=== PATIENT | female | born 1990 | race African-American/Black ===

== ENCOUNTER 2016-02-26 06:57 | Inpatient (IN) | payer OTHER ==
[2016-02-26] VITALS (22 sets, daily range): BP systolic 130–172; BP diastolic 72–109
[~2016-02-26] VITALS: Ht 165.1 cm; Wt 181.6 kg
[~2016-02-26 06:57] MED LIST: ADVIL,NUPRIN,M200 MG PO; DIFLUCAN150 MG PO; EXCEDRIN MIGRA1 EAC3 PO; FIORICET 50-301 EACH PO; MOTRIN PO; NAPROSYN500 MG PO; PREDNISONE20 MG PO; PRENATAL TABLE1 EAC3 PO; TRAMADOL HCL50 MG PO; ZITHROMAX Z-PA250 MG PO; ZOFRAN4 MG PO
[2016-02-26 09:12] LABS: EOSINOPHIL (%) 0.8 % (0-5); EOSINOPHIL COUNT 0.1 K/uL (0-0.3); HEMATOCRIT 33.1 % (36.0-46.0); IMMATURE GRANULOCYTE (%) 0.1 % (0.0-0.7); LYMPHOCYTE COUNT 2.1 K/uL (1.0-2.8); MCH 26.3 PG (29.0-34.0); MCHC 31.7 G/DL (30.0-36.0); MEAN PLAT.VOLUME 12.4 uM^3 (9.5-12.4); MONOCYTE (%) 4.8 % (3-12); MONOCYTE COUNT 0.5 K/uL (0-0.8); NEUTROPHIL COUNT 7.1 K/uL (1.8-6.4); PLATELET COUNT 174 K/uL (156-360); RBC DIS.WIDTH-CV 14.7 % (11.8-14.6); RBC DIS.WIDTH-SD 44.3 % (39-53); RED BLOOD COUNT 3.99 M/uL (3.80-5.20); WHITE BLOOD COUNT 9.7 K/uL (4.1-10.2)
[2016-02-26 09:14] LABS: UR CREATININE CONCENTRATION 178.4 MG/DL
[2016-02-26 09:15] LABS: AMPHETAMINES QUANT VALUE 0 NG/ML; BARBITUATES QUANT VALUE 0 NG/ML; BENZODIAZEPINES QUANT VALUE 0 NG/ML; BENZODIAZEPINES, URINE SCREEN Negative (200 ng/mL); MARIJUANA QUANT VALUE 0 NG/ML; OPIATES QUANTITATIVE VALUE 0 NG/ML; PHENCYCLIDINE QUANT VALUE 0 NG/ML
[2016-02-26 10:03] LABS: ALKALINE PHOSPHATASE 141 IU/L (3-129); ANION GAP 9 MEQ/L (2-14); CHLORIDE 106 MEQ/L (99-109); GFR ESTIMATE (CALCULATED) > 59 mL/min/; GLUCOSE 87 mg/dL (70-99); POTASSIUM 4.2 MEQ/L (3.7-5.4); SAMPLE HEMOLYSIS CHECK 0; SAMPLE ICTERIC CHECK 0; SAMPLE LIPEMIA CHECK 0; SODIUM 137 MEQ/L (136-147); TOTAL BILIRUBIN 0.2 MG/DL (0.0-1.0); UREA NITROGEN (BUN) 9 mg/dL (9-23)
[2016-02-26] MEDS ORDERED: IBUPROFEN800 MG PO (21:18)
[2016-02-27 00:15] VITALS: BP 137/72
[2016-02-27 04:04] VITALS: BP 121/58
[2016-02-27 06:23] LABS: EOSINOPHIL (%) 0.1 % (0-5); HEMATOCRIT 29.6 % (36.0-46.0); IMMATURE GRANULOCYTE (%) 0.2 % (0.0-0.7); MCH 26.2 PG (29.0-34.0); MCHC 31.8 G/DL (30.0-36.0); MCV 82.5 FL (83-99); MEAN PLAT.VOLUME 12.8 uM^3 (9.5-12.4); MONOCYTE (%) 4.7 % (3-12); MONOCYTE COUNT 0.6 K/uL (0-0.8); NEUTROPHIL (%) 80.1 % (45-76); NEUTROPHIL COUNT 10.8 K/uL (1.8-6.4); PLATELET COUNT 166 K/uL (156-360); RBC DIS.WIDTH-CV 14.4 % (11.8-14.6); RBC DIS.WIDTH-SD 43.3 % (39-53); RED BLOOD COUNT 3.59 M/uL (3.80-5.20)
[2016-02-27 06:25] LABS: WHITE BLOOD COUNT 13.4 K/uL (4.1-10.2)
[2016-02-27 07:49] VITALS: BP 149/79
[2016-02-27 12:45] LABS: CHLAMYDIA TRACHOMATIS NEGATIVE; NEISSERIA GONORRHOEAE NEGATIVE
[2016-02-27 13:00] VITALS: BP 130/68
[2016-02-27 15:46] VITALS: BP 139/86
[2016-02-27 20:04] VITALS: BP 125/77
[2016-02-28 02:19] VITALS: BP 122/76
[2016-02-28 05:22] VITALS: BP 117/75
[2016-02-28 07:20] VITALS: BP 110/68
== END 2016-02-28 13:25 | disposition home or self-care (01) | DRG 775 ==
LOC: LDRP-OP 06:57 → 2WEST 06:58 → LDRP-OP 15:08 → 2WEST 20:46 → LDRP-OP 03-28 22:14
PROVIDERS: Midwife; Obstetrics & Gynecology
DX: O70.1 Second degree perineal laceration during delivery (principal); O14.04 Mild to moderate pre-eclampsia, complicating childbirth; O99.824 Streptococcus B carrier state complicating childbirth; O69.81X0 Labor and delivery complicated by cord around neck, without compression, not applicable or unspecified; O99.214 Obesity complicating childbirth; E66.01 Morbid (severe) obesity due to excess calories; Z68.44 Body mass index [BMI] 60.0-69.9, adult; Z3A.40 40 weeks gestation of pregnancy; Z37.0 Single live birth; Z23 Encounter for immunization
CPT/HCPCS: 80053; 82570; 84156; 85025; 86850; 86900; 86901; 87491; 87591; J0595; J3370; J7120

== ENCOUNTER 2016-11-30 16:27 | Outpatient (CLI) | payer OTHER ==
[~2016-11-30] VITALS: Ht 165.1 cm; Wt 188.8 kg
[~2016-11-30 16:27] MED LIST changes: +IBUPROFEN800 MG PO
[2016-11-30 17:30] LABS: HEMATOCRIT 30.7 % (36.0-46.0); MCH 25.4 PG (29.0-34.0); MCHC 31.6 G/DL (30.0-36.0); MCV 80.4 FL (83-99); MEAN PLAT.VOLUME 12.2 uM^3 (9.5-12.4); PLATELET COUNT 229 K/uL (156-360); RBC DIS.WIDTH-CV 14.7 % (11.8-14.6); RED BLOOD COUNT 3.82 M/uL (3.80-5.20); WHITE BLOOD COUNT 9.6 K/uL (4.1-10.2)
[2016-11-30 17:43] LABS: CHLORIDE 106 mEq/L (99-109); POTASSIUM 4.4 mEq/L (3.7-5.4); SODIUM 136 mEq/L (136-147)
[2016-11-30 17:45] LABS: GLUCOSE 95 mg/dL (70-99)
[2016-11-30 17:47] LABS: ANION GAP 10 MEQ/L (2-14); TOTAL BILIRUBIN 0.1 mg/dL (0.0-1.0)
[2016-11-30 17:49] LABS: ALKALINE PHOSPHATASE 87 IU/L (3-129); GFR ESTIMATE (CALCULATED) > 59 mL/min/
[2016-11-30 17:50] LABS: UREA NITROGEN (BUN) 6 mg/dL (9-23)
[2016-11-30] MEDS ORDERED: PRENATAL TABLE1 EAC3 PO (19:08)
[2016-11-30 22:26] VITALS: BP 134/63
[2016-12-01 02:57] VITALS: BP 115/63
[2016-12-01 08:31] VITALS: BP 123/87
[2016-12-01 12:40] VITALS: BP 108/51
[2016-12-01 15:27] VITALS: BP 81/44
[2016-12-01 15:28] VITALS: BP 79/50
[2016-12-01 15:52] VITALS: BP 101/55
[2016-12-01 16:53] LABS: ADD MIUA? YES; BILIRUBIN NEGATIVE; BLOOD NEGATIVE; COLOR YELLOW ((YELLOW)); GLUCOSE (STRIP) NEGATIVE; KETONES NEGATIVE; LEUKOCYTES TRACE; NITRITE NEGATIVE; PROTEIN (STRIP) 30; SPECIFIC GRAVITY 1.024 (1.000-1.030)
[2016-12-01 17:54] LABS: BACTERIA 1+ /HPF; CASTS NONE SEEN /LPF; CRYSTALS NONE SEEN; EPITHELIAL CELLS 1+ /HPF; MUCUS 1+ /LPF; RED BLOOD CELLS 0-5 /HPF (0-5); WHITE BLOOD CELLS 0-5 /HPF (0-5)
== END 2016-12-01 16:56 | disposition home or self-care (01) ==
LOC: LDRP-OP 16:27 → EME 16:27 → EDSTATUS 22:17 → 2WEST 22:18
PROVIDERS: Hospitalist; Physician Assistant
PROC: 0H91XZZ Drainage of Face Skin, External Approach (ICD-10-PCS; principal; 2016-11-30)
DX: O98.813 Other maternal infectious and parasitic diseases complicating pregnancy, third trimester (principal); L02.01 Cutaneous abscess of face; L03.211 Cellulitis of face; R03.0 Elevated blood-pressure reading, without diagnosis of hypertension; O99.213 Obesity complicating pregnancy, third trimester; E66.01 Morbid (severe) obesity due to excess calories; Z68.43 Body mass index [BMI] 50.0-59.9, adult; O99.013 Anemia complicating pregnancy, third trimester; Z3A.30 30 weeks gestation of pregnancy; Z88.0 Allergy status to penicillin
CPT/HCPCS: 59025; 80053; 81003; 83605; 85027; 87040; 87070; 87075; 87076; 87205; G0378; J0696; J7050; S0030

== ENCOUNTER 2017-01-25 23:15 | Inpatient (IN) | payer OTHER ==
[~2017-01-25] VITALS: Ht 165.1 cm; Wt 190.9 kg
[2017-01-25 23:44] VITALS: BP 152/81
[2017-01-26] VITALS (12 sets, daily range): BP systolic 111–149; BP diastolic 57–101
[2017-01-26 00:13] LABS: EOSINOPHIL (%) 0.6 % (0-5); EOSINOPHIL COUNT 0.1 K/uL (0-0.3); HEMATOCRIT 30.3 % (36.0-46.0); IMMATURE GRANULOCYTE (%) 0.3 % (0.0-0.7); INSTRUMENT ABS NEUTROPHIL CT 6.7 K/uL; MCH 24.9 PG (29.0-34.0); MCHC 31.7 G/DL (30.0-36.0); MCV 78.5 FL (83-99); MEAN PLAT.VOLUME 12.9 uM^3 (9.5-12.4); MONOCYTE (%) 6.2 % (3-12); MONOCYTE COUNT 0.6 K/uL (0-0.8); NEUTROPHIL (%) 71.9 % (45-76); NEUTROPHIL COUNT 6.7 K/uL (1.8-6.4); PLATELET COUNT 196 K/uL (156-360); RBC DIS.WIDTH-CV 15.6 % (11.8-14.6); RED BLOOD COUNT 3.86 M/uL (3.80-5.20); WHITE BLOOD COUNT 9.4 K/uL (4.1-10.2)
[2017-01-26] MEDS ORDERED: BACTRIM,SEPT1 TABLET PO (00:21)
[2017-01-26] MEDS ORDERED: IRON325 M1 PO (00:22)
[2017-01-26 00:24] LABS: CHLORIDE 113 mEq/L (99-109); POTASSIUM 3.9 mEq/L (3.7-5.4); SODIUM 139 mEq/L (136-147)
[2017-01-26 00:26] LABS: GLUCOSE 133 mg/dL (70-99)
[2017-01-26 00:27] LABS: ANION GAP 5 MEQ/L (2-14)
[2017-01-26 00:28] LABS: TOTAL BILIRUBIN 0.1 mg/dL (0.0-1.0)
[2017-01-26 00:29] LABS: ALKALINE PHOSPHATASE 153 IU/L (3-129)
[2017-01-26 00:30] LABS: GFR ESTIMATE (CALCULATED) > 59 mL/min/
[2017-01-26 00:31] LABS: UREA NITROGEN (BUN) 8 mg/dL (9-23)
[2017-01-26 01:05] LABS: DRSB INTERNAL CONTROL PASS; PROBE CHECK PASS; SPECIMEN PROCESSING CONTROL PASS
[2017-01-26 02:25] LABS: UR CREATININE CONCENTRATION 428.9 MG/DL
[2017-01-26] MEDS ORDERED: MOTRIN800 MG PO (13:42)
[2017-01-26] MEDS ORDERED: PERCOCET 5/31 TABLET PO (13:42)
[2017-01-27 07:12] LABS: HEMATOCRIT 28.3 % (36.0-46.0); MCH 24.1 PG (29.0-34.0); MCV 80.4 FL (83-99); MEAN PLAT.VOLUME 12.9 uM^3 (9.5-12.4); PLATELET COUNT 178 K/uL (156-360); RBC DIS.WIDTH-CV 15.8 % (11.8-14.6); RBC DIS.WIDTH-SD 45.7 % (39-53); RED BLOOD COUNT 3.52 M/uL (3.80-5.20); WHITE BLOOD COUNT 16.3 K/uL (4.1-10.2)
[2017-01-27 07:25] VITALS: BP 123/70
[2017-01-27 08:04] LABS: ABS NEUTROPHIL COUNT 14.7; ANISOCYTOSIS 1+; EOSINOPHIL ABS CT 0; HYPOCHROMASIA 1+; INSTRUMENT ABS NEUTROPHIL CT 14.3 K/uL; MICROCYTOSIS 1+
[2017-01-27 11:16] VITALS: BP 129/62
[2017-01-27 14:43] LABS: HEMATOCRIT 27.1 % (36.0-46.0); MCH 24.6 PG (29.0-34.0); MCHC 30.6 G/DL (30.0-36.0); MCV 80.2 FL (83-99); MEAN PLAT.VOLUME 12.1 uM^3 (9.5-12.4); PLATELET COUNT 162 K/uL (156-360); RBC DIS.WIDTH-CV 15.8 % (11.8-14.6); RBC DIS.WIDTH-SD 45.5 % (39-53); RED BLOOD COUNT 3.38 M/uL (3.80-5.20); WHITE BLOOD COUNT 16.2 K/uL (4.1-10.2)
[2017-01-27 14:46] VITALS: BP 129/65
[2017-01-27 15:01] LABS: ANION GAP 5 MEQ/L (2-14); CHLORIDE 105 MEQ/L (99-109); GFR ESTIMATE (CALCULATED) > 59 mL/min/; POTASSIUM 4.6 MEQ/L (3.7-5.4); SAMPLE HEMOLYSIS CHECK 0; SAMPLE ICTERIC CHECK 0; SAMPLE LIPEMIA CHECK 0; SODIUM 135 MEQ/L (136-147); UREA NITROGEN (BUN) 10 mg/dL (9-23)
[2017-01-27 15:03] LABS: ALKALINE PHOSPHATASE 99 IU/L (3-129); GLUCOSE 86 mg/dL (70-99); TOTAL BILIRUBIN 0.4 MG/DL (0.0-1.0)
[2017-01-27 15:29] LABS: ABS NEUTROPHIL COUNT 13.8; ANISOCYTOSIS 1+; BAND NEUTROPHILS 9.7 % (0-8.0); EOSINOPHIL ABS CT 0; HYPOCHROMASIA 1+; INSTRUMENT ABS NEUTROPHIL CT 14.2 K/uL; METAMYELOCYTES 0.9 %; MICROCYTOSIS 1+; MYELOCYTES 0.9 %; PLAT.SUFFICIENCY ADEQUATE; SEG.NEUTROPHILS 75.4 % (46.0-76.0)
[2017-01-27 16:07] LABS: ADD MIUA? YES; BILIRUBIN SMALL; BLOOD LARGE; COLOR AMBER ((YELLOW)); GLUCOSE (STRIP) NEGATIVE; KETONES NEGATIVE; LEUKOCYTES TRACE; NITRITE NEGATIVE; PROTEIN (STRIP) 100; SPECIFIC GRAVITY 1.029 (1.000-1.030)
[2017-01-27 16:41] LABS: UR CREATININE CONCENTRATION 386.4 MG/DL
[2017-01-27 17:47] LABS: RED BLOOD CELLS TNTC /HPF (0-5)
[2017-01-27 17:50] LABS: WHITE BLOOD CELLS 0-5 /HPF (0-5)
[2017-01-27 17:52] LABS: BACTERIA 1+ /HPF; MUCUS 2+ /LPF; UCUL ADDED? YES
[2017-01-27 17:53] LABS: EPITHELIAL CELLS 2+ /HPF
[2017-01-27 17:54] LABS: CASTS PRESENT /LPF
[2017-01-27 17:55] LABS: AMORPHOUS URATES CRYSTALS 1+; CRYSTALS PRESENT; HYALINE CASTS 0-5 /LPF; WAXY CASTS RARE /LPF
[2017-01-27 19:30] VITALS: BP 120/70
[2017-01-28 07:16] VITALS: BP 141/111
[2017-01-28 07:17] VITALS: BP 141/111
[2017-01-28 07:45] VITALS: BP 146/84
[2017-01-28 11:16] VITALS: BP 128/78
[2017-01-28 15:03] VITALS: BP 139/71
[2017-01-29 07:25] VITALS: BP 136/85
[2017-01-29 14:30] VITALS: BP 131/84
[2017-01-29 19:50] VITALS: BP 129/64
[2017-01-29 23:31] VITALS: BP 122/69
[2017-01-30 03:32] VITALS: BP 137/84
[2017-01-30 07:24] VITALS: BP 140/76
[2017-01-30 14:38] VITALS: BP 125/80
[2017-01-31 07:25] VITALS: BP 128/79
[2017-01-31] MEDS ORDERED: BACTRIM,SEPT1 TABLET PO (09:38)
== END 2017-01-31 12:00 | disposition home or self-care (01) | DRG 765 ==
LOC: LDRP-OP → 2WEST 23:16 → LDRP-OP 03-06 11:36
PROVIDERS: Midwife; Obstetrics & Gynecology; Obstetrics & Gynecology Obstetrics
PROC: 10D00Z1 Extraction of Products of Conception, Low, Open Approach (ICD-10-PCS; principal; 2017-01-26)
DX: O76 Abnormality in fetal heart rate and rhythm complicating labor and delivery (principal); O64.0XX0 Obstructed labor due to incomplete rotation of fetal head, not applicable or unspecified; O86.0 Infection of obstetric surgical wound; L03.311 Cellulitis of abdominal wall; O23.43 Unspecified infection of urinary tract in pregnancy, third trimester; B96.20 Unspecified Escherichia coli [E. coli] as the cause of diseases classified elsewhere; O42.92 Full-term premature rupture of membranes, unspecified as to length of time between rupture and onset of labor; O99.353 Diseases of the nervous system complicating pregnancy, third trimester; G43.909 Migraine, unspecified, not intractable, without status migrainosus; O99.214 Obesity complicating childbirth; E66.01 Morbid (severe) obesity due to excess calories; Z68.44 Body mass index [BMI] 60.0-69.9, adult; Z3A.39 39 weeks gestation of pregnancy; Z37.0 Single live birth; Z87.440 Personal history of urinary (tract) infections
CPT/HCPCS: 80053; 81003; 82570; 84156; 84300; 85025; 85025 91; 87077; 87086; 87186; 87653; 93005; C1755; G0378; J1580; J1650; J2274; J2405; J2590; J2765; J7030; J7050; J7120